=== PATIENT | female | born 2000 | race Caucasian/White ===

== ENCOUNTER 2025-01-11 20:43 | Emergency (ER) | payer MEDICAID ==
[~2025-01-11] VITALS: Ht 170.2 cm; Wt 75.0 kg
[2025-01-11 21:10] VITALS: BP 122/72; PULSE 75; RESP 18; TEMP 98.4; O2SAT 100
[2025-01-11] MEDS: ACETAMINOPHEN 500 MG TABLET PO ONE (23:28)
[2025-01-11] MEDS: LORazepam 2 MG TABLET PO ONE (23:28)
== END 2025-01-11 23:49 | disposition home or self-care (01) ==
LOC: EMS 20:43
DX: F41.0 Panic disorder [episodic paroxysmal anxiety] (principal)
CPT/HCPCS: 99283